=== PATIENT | female | born 1965 | race Caucasian/White ===

== ENCOUNTER 2017-12-25 22:14 | Inpatient (IN) | payer BC ==
[~2017-12-25] VITALS: Ht 182.9 cm; Wt 60.6 kg
[2017-12-25] MEDS ORDERED: NKM (22:22)
[2017-12-25 22:45] LABS: BASOPHILS % (AUTO) 1.9 % (0.0-2.0); EOSINOPHILS % (AUTO) 0.5 % (0.0-3.0); HEMATOCRIT 39.5 % (37.0-47.0); HEMOGLOBIN 13.9 G/DL (12.0-16.0); LYMPHOCYTES % (AUTO) 37.2 % (20.0-45.0); MEAN CORPUSCULAR VOLUME 95 FL (80-99); MONOCYTES % (AUTO) 11.6 % (1.0-10.0); NEUTROPHILS % (AUTO) 48.8 % (45.0-75.0); PLATELET COUNT 105 K/UL (150-450); RED BLOOD COUNT 4.14 M/UL (4.20-5.40); RED CELL DISTRIBUTION WIDTH 11.6 % (11.6-14.8); WHITE BLOOD COUNT 4.2 K/UL (4.8-10.8)
[2017-12-25 22:48] LABS: APPEARANCE,URINE CLEAR; BILIRUBIN, URINE NEGATIVE (NEGATIVE); COLOR,URINE PALE YELLOW; GLUCOSE, URINE (UA) NEGATIVE (NEGATIVE); KETONES,URINE NEGATIVE (NEGATIVE); LEUKOCYTE ESTERASE ,URINE 3+ (NEGATIVE); NITRITE,URINE NEGATIVE (NEGATIVE); PH,URINE 6 (4.5-8.0); PROTEIN,URINE 1+ (NEGATIVE); UROBILINOGEN,URINE NORMAL MG/DL (0.0-1.0)
[2017-12-25 22:58] LABS: ALBUMIN 4.2 G/DL (3.4-5.0); ANION GAP 11 mmol/L (5-15); CALCIUM 9.3 MG/DL (8.5-10.1); CARBON DIOXIDE 28 MMOL/L (21-32); CHLORIDE 100 MMOL/L (98-107); CREATININE 0.6 MG/DL (0.55-1.30); POTASSIUM 3.8 MMOL/L (3.5-5.1); SODIUM 139 MMOL/L (136-145)
[2017-12-25 23:15] LABS: ALANINE AMINOTRANSFERASE 45 U/L (12-78); ASPARTATE AMINO TRANSFERASE 35 U/L (15-37); BILIRUBIN,TOTAL 0.4 MG/DL (0.2-1.0); BLOOD UREA NITROGEN 12 mg/dL (7-18)
[2017-12-25 23:16] LABS: ALBUMIN/GLOBULIN RATIO 1.1 (1.0-2.7); ALKALINE PHOSPHATASE 76 U/L (46-116)
[2017-12-26] MEDS ORDERED: metroNIDAZOLE 500mg tab ORAL ONE (00:30)
[2017-12-26] MEDS ORDERED: cefTRIAXone 1 GM in NS 55 ML IVPB ONE (00:30)
[2017-12-26 00:44] VITALS: BP 101/57
[2017-12-26] MEDS ORDERED: LORazepam Inj 2mg/ml 1ml IV ONE (02:15)
[2017-12-26 04:15] VITALS: BP 101/57
--- NOTE | 2017-12-26 05:28 | Emergency Room Report ---
History of Present Illness General Chief Complaint: Overdose Source: Patient, EMS Present Illness HPI Patient presents by paramedics Put on a 5150 by police department There was a report patient had mentioned suicidal ideation Patient reported taking 2 of her dogs gabapentin And then drinking alcohol here The patient adamantly denies any homicidal or suicidal ideation However she does state that she does drink alcohol on a regular basis considers herself an alcoholic has been in rehabilitation programs After further observation has started to complain about feeling anxious and having palpitation Denies any chest pain denies any vomiting or diarrhea Allergies: Coded Allergies: PIPERACILLIN (Verified Allergy, Unknown, 12/25/17) Patient History Past Medical History: see triage record Pertinent Family History: none Last Menstrual Period: unk Reviewed Nursing Documentation: PMH: Agreed, PSxH: Agreed Nursing Documentation-PMH Past Medical History: No History, Except For Hx Cardiac Problems: No Hx Cancer: No Hx Gastrointestinal Problems: No Hx Neurological Problems: No Review of Systems All Other Systems: negative except mentioned in HPI Physical Exam Vital Signs Date Time Temp Pulse Resp B/P (MAP) Pulse Ox O2 Delivery O2 Flow Rate FiO2 12/25/17 22:09 97.8 97 22 127/78 100 Room Air 97.9 12/26/17 04:15 146.0 93 [id number] EP Interpretation: reviewed, normal General Appearance: mild distress - Appears anxious Head: normocephalic, atraumatic Eyes: bilateral eye PERRL, bilateral eye EOMI ENT: hearing grossly normal, normal pharynx, TMs + canals normal, uvula midline Neck: full range of motion, supple, no meningismus, no bony tend Respiratory: lungs clear, normal breath sounds, no rhonchi, no respiratory distress, no retraction, no accessory muscle use Cardiovascular #1: normal peripheral pulses, no edema, no gallop, no JVD, no murmur, tachycardia Gastrointestinal: normal bowel sounds, non tender, soft, no mass, no organomegaly, non-distended, no guarding, no hernia, no pulsatile mass, no rebound Genitourinary: no CVA tenderness Musculoskeletal: normal inspection Neurologic: oriented x3, responsive, embroidery finisher III-XII nml as tested, motor strength/ tone normal, sensory intact Psychiatric: anxious - Denies homicidal or suicidal thoughts Skin: normal color, no rash, warm/dry, palpation normal Lymphatic: normal inspection, no adenopathy Medical Decision Making Diagnostic Impression: Primary Impression: Alcohol withdrawal ER Course Patient's presentation is concerning on multiple levels Initial psychiatric component patient had blood work initiated for medical clearance However patient also showing signs and symptoms of alcohol withdrawal Requiring benzodiazepine further IV hydration At this time patient is not able to be medically cleared She will require further inpatient care Psychiatric services have been consulted and patient will have sitter at bedside until further cleared through that service And medicine for the alcohol with withdrawal pathology Labs Test 12/25/17 22:20 White Blood Count 4.2 K/UL (4.8-10.8) Red Blood Count 4.14 M/UL (4.20-5.40) Hemoglobin 13.9 G/DL (12.0-16.0) Hematocrit 39.5 % (37.0-47.0) Mean Corpuscular Volume 95 FL (80-99) Mean Corpuscular Hemoglobin 33.5 PG (27.0-31.0) Mean Corpuscular Hemoglobin Concent 35.1 G/DL (32.0-36.0) Red Cell Distribution Width 11.6 % (11.6-14.8) Platelet Count 105 K/UL (150-450) Mean Platelet Volume 7.3 FL (6.5-10.1) Neutrophils (%) (Auto) 48.8 % (45.0-75.0) Lymphocytes (%) (Auto) 37.2 % (20.0-45.0) Monocytes (%) (Auto) 11.6 % (1.0-10.0) Eosinophils (%) (Auto) 0.5 % (0.0-3.0) Basophils (%) (Auto) 1.9 % (0.0-2.0) Urine Color Pale yellow Urine Appearance Clear Urine pH 6 (4.5-8.0) Urine Specific [place] 1.010 (1.005-1.035) Urine Protein 1+ (NEGATIVE) Urine Glucose (UA) Negative (NEGATIVE) Urine Ketones Negative (NEGATIVE) Urine Occult Blood 1+ (NEGATIVE) Urine Nitrite Negative (NEGATIVE) Urine Bilirubin Negative (NEGATIVE) Urine Urobilinogen Normal MG/DL (0.0-1.0) Urine Leukocyte Esterase 3+ (NEGATIVE) Urine RBC 2-4 /HPF (0 - 2) Urine WBC 5-10 /HPF (0 - 2) Urine Squamous Epithelial Cells Few /LPF (NONE/OCC) Urine Bacteria Moderate /HPF (NONE) Urine Trichomonas Few /HPF (NONE) Sodium Level 139 MMOL/L (136-145) Potassium Level 3.8 MMOL/L (3.5-5.1) Chloride Level 100 MMOL/L (98-107) Carbon Dioxide Level 28 MMOL/L (21-32) Anion Gap 11 mmol/L (5-15) Blood Urea Nitrogen 12 mg/dL (7-18) Creatinine 0.6 MG/DL (0.55-1.30) Estimat Glomerular Filtration Rate > 60 mL/min (>60) Glucose Level 118 MG/DL (74-106) Calcium Level 9.3 MG/DL (8.5-10.1) Total Bilirubin 0.4 MG/DL (0.2-1.0) Aspartate Amino Transf (AST/SGOT) 35 U/L (15-37) Alanine Aminotransferase (ALT/SGPT) 45 U/L (12-78) Alkaline Phosphatase 76 U/L (46-116) Total Protein 8.0 G/DL (6.4-8.2) Albumin 4.2 G/DL (3.4-5.0) Globulin 3.8 g/dL Albumin/Globulin Ratio 1.1 (1.0-2.7) Salicylates Level 2.8 ug/mL (2.8-20) Urine Opiates Screen Negative (NEGATIVE) Acetaminophen Level < 2 MCG/ML (10-30) Urine Barbiturates Screen Negative (NEGATIVE) Phencyclidine (PCP) Screen Negative (NEGATIVE) Urine Amphetamines Screen Negative (NEGATIVE) Urine Benzodiazepines Screen Positive (NEGATIVE) Urine Cocaine Screen Negative (NEGATIVE) Urine Marijuana (THC) Screen Negative (NEGATIVE) Serum Alcohol 435 mg/dL Rhythm Strip Diag. Results EP Interpretation: yes Rate: 99 Rhythm: NSR, no PVC's, no ectopy Last Vital Signs Date Time Temp Pulse Resp B/P (MAP) Pulse Ox O2 Delivery O2 Flow Rate FiO2 12/26/17 04:19 97.8 106 21 101/57 100 Room Air 97.9 12/26/17 04:15 146.0 93 Status: improved Disposition: ADMITTED INPATIENT Condition: Serious Referrals: NOT CHOSEN IPA/,REFERRING (PCP) GAMA RAYMOND D.O. Dec 26, 2017 05:28
[2017-12-26] MEDS ORDERED: Morphine Sulfate 2mg/ml Inj IVP PRN ×2 (07:15→22:14)
[2017-12-26] MEDS ORDERED: Mylanta II UD 30ml ORAL PRN ×2 (07:15→22:13)
[2017-12-26] MEDS ORDERED: Miralax 17gm pkt ORAL PRN ×2 (07:15→22:14)
[2017-12-26] MEDS ORDERED: chlordiazePOXIDE 25mg Cap ORAL PRN (07:15)
[2017-12-26] MEDS ORDERED: LORazepam Inj 2mg/ml 1ml IV PRN (07:15)
--- NOTE | 2017-12-26 07:36 | Consultation ---
History of Present Illness General Date patient seen: Dec 26, 2017 Chief Complaint: Overdose Present Illness HPI 52 year old female presented by paramedics with a report that patient had mentioned suicidal ideation Patient reported taking 2 gabapentin And then drinking alcohol around 5 liters. she does drink alcohol on a regular basis considers herself an alcoholic has been in rehabilitation programs Pt is admitted to [facility] for ETOH intoxication. Allergies: Coded Allergies: PIPERACILLIN (Verified Allergy, Unknown, 12/25/17) Medication History Scheduled No Known Medications* (NKM - No Known Medications*), 0 ., (Reported) Patient History Healthcare decision maker Resuscitation status Full Code Advanced Directive on File Past Medical/Surgical History Past Medical/Surgical History: (1) ETOH abuse Review of Systems All Other Systems: negative except mentioned in HPI Physical Exam Lines, tubes and drains: peripheral HEENT: normocephalic, atraumatic Neck: non-tender Respiratory/Chest: chest wall non-tender, lungs clear Cardiovascular/Chest: normal peripheral pulses, normal rate Abdomen: normal bowel sounds, non tender Genitourinary/Rectal: normal genital exam, normal rectal exam Extremities: normal range of motion, non-tender Last 24 Hour Vital Signs Date Time Temp Pulse Resp B/P (MAP) Pulse Ox O2 Delivery O2 Flow Rate FiO2 12/26/17 04:19 97.8 106 21 101/57 100 Room Air 97.9 12/26/17 04:15 98.2 78 18 101/57 99 Room Air 146.0 93 98.2 12/26/17 04:00 88 12/26/17 00:44 106 21 101/57 100 Room Air 12/25/17 22:35 97 22 Room Air 12/25/17 22:09 97.8 97 22 127/78 100 Room Air 97.9 Intake and Output 12/25/17 12/26/17 19:00 07:00 Intake Total 1055 ml Output Total 0 ml Balance 1055 ml Intake Oral 0 ml IV Total 1055 ml Output Urine Total 0 ml Laboratory Tests Test 12/25/17 22:20 White Blood Count 4.2 K/UL (4.8-10.8) L Red Blood Count 4.14 M/UL (4.20-5.40) L Hemoglobin 13.9 G/DL (12.0-16.0) Hematocrit 39.5 % (37.0-47.0) Mean Corpuscular Volume 95 FL (80-99) Mean Corpuscular Hemoglobin 33.5 PG (27.0-31.0) H Mean Corpuscular Hemoglobin Concent 35.1 G/DL (32.0-36.0) Red Cell Distribution Width 11.6 % (11.6-14.8) Platelet Count 105 K/UL (150-450) L Mean Platelet Volume 7.3 FL (6.5-10.1) Neutrophils (%) (Auto) 48.8 % (45.0-75.0) Lymphocytes (%) (Auto) 37.2 % (20.0-45.0) Monocytes (%) (Auto) 11.6 % (1.0-10.0) H Eosinophils (%) (Auto) 0.5 % (0.0-3.0) Basophils (%) (Auto) 1.9 % (0.0-2.0) Urine Color Pale yellow Urine Appearance Clear Urine pH 6 (4.5-8.0) Urine Specific [place] 1.010 (1.005-1.035) Urine Protein 1+ (NEGATIVE) H Urine Glucose (UA) Negative (NEGATIVE) Urine Ketones Negative (NEGATIVE) Urine Occult Blood 1+ (NEGATIVE) H Urine Nitrite Negative (NEGATIVE) Urine Bilirubin Negative (NEGATIVE) Urine Urobilinogen Normal MG/DL (0.0-1.0) Urine Leukocyte Esterase 3+ (NEGATIVE) H Urine RBC 2-4 /HPF (0 - 2) H Urine WBC 5-10 /HPF (0 - 2) H Urine Squamous Epithelial Cells Few /LPF (NONE/OCC) Urine Bacteria Moderate /HPF (NONE) H Urine Trichomonas Few /HPF (NONE) H Sodium Level 139 MMOL/L (136-145) Potassium Level 3.8 MMOL/L (3.5-5.1) Chloride Level 100 MMOL/L (98-107) Carbon Dioxide Level 28 MMOL/L (21-32) Anion Gap 11 mmol/L (5-15) Blood Urea Nitrogen 12 mg/dL (7-18) Creatinine 0.6 MG/DL (0.55-1.30) Estimat Glomerular Filtration Rate > 60 mL/min (>60) Glucose Level 118 MG/DL (74-106) H Calcium Level 9.3 MG/DL (8.5-10.1) Total Bilirubin 0.4 MG/DL (0.2-1.0) Aspartate Amino Transf (AST/SGOT) 35 U/L (15-37) Alanine Aminotransferase (ALT/SGPT) 45 U/L (12-78) Alkaline Phosphatase 76 U/L (46-116) Total Protein 8.0 G/DL (6.4-8.2) Albumin 4.2 G/DL (3.4-5.0) Globulin 3.8 g/dL Albumin/Globulin Ratio 1.1 (1.0-2.7) Salicylates Level 2.8 ug/mL (2.8-20) Urine Opiates Screen Negative (NEGATIVE) Acetaminophen Level < 2 MCG/ML (10-30) L Urine Barbiturates Screen Negative (NEGATIVE) Phencyclidine (PCP) Screen Negative (NEGATIVE) Urine Amphetamines Screen Negative (NEGATIVE) Urine Benzodiazepines Screen Positive (NEGATIVE) H Urine Cocaine Screen Negative (NEGATIVE) Urine Marijuana (THC) Screen Negative (NEGATIVE) Serum Alcohol 435 mg/dL Height (Feet): 6 Height (Inches): 0.00 Weight (Pounds): 133 Medications Current Medications Medications (Trade) Dose Ordered Sig/Agustin Route PRN Reason Start Time Stop Time Status Last Admin Dose Admin Acetaminophen (Tylenol) 650 mg Q4H PRN ORAL T>100.5 12/26/17 07:15 01/25/18 07:14 Al Hydroxide/Mg Hydroxide (Mylanta II) 30 ml Q6H PRN ORAL dyspepsia 12/26/17 07:15 01/25/18 07:14 Chlordiazepoxide (Librium) 25 mg Q6H PRN ORAL Agitation 12/26/17 07:15 01/02/18 07:14 Dextrose (Dextrose 50%) STAT PRN IV Hypoglycemia 12/26/17 07:15 01/25/18 07:14 Folic Acid 1 mg/ Magnesium Sulfate 2000 mg/ Multivitamins 10 ml/Sodium Chloride 1,014.2 ml @ 125 mls/ hr Q24H IV 12/26/17 08:30 01/25/18 08:29 Heparin Sodium (Porcine) (Heparin 5000 units/ml) 5,000 units EVERY 12 HOURS SUBQ 12/26/17 09:00 01/25/18 08:59 Lorazepam (Ativan 2mg/ml 1ml) 2 mg EVERY HOUR PRN IV seizures 12/26/17 07:15 01/02/18 07:14 Morphine Sulfate (Morphine Sulfate) 1 mg Q4H PRN IVP Severe Pain (Pain Scale 7-10) 12/26/17 07:15 01/02/18 07:14 Ondansetron HCl (Zofran) 4 mg Q6H PRN IVP Nausea & Vomiting 12/26/17 07:15 01/25/18 07:14 Polyethylene Glycol (Miralax) 17 gm HSPRN PRN ORAL Constipation 12/26/17 07:15 01/25/18 07:14 Thiamine HCl 100 mg/Sodium Chloride 56 ml @ 112 mls/hr Q24H IVPB 12/26/17 08:30 01/25/18 08:29 Zolpidem Tartrate (Ambien) 5 mg HSPRN PRN ORAL Insomnia 12/26/17 21:00 01/02/18 20:59 Assessment/Plan Problem List: (1) Acute encephalopathy ICD Codes: G93.40 - Encephalopathy, unspecified SNOMED: 64301672, 492762451 (2) Drug overdose ICD Codes: T50.901A - Poisoning by unspecified drugs, medicaments and biological substances, accidental (unintentional), initial encounter SNOMED: 96368690 (3) ETOH abuse ICD Codes: F10.10 - Alcohol abuse, uncomplicated SNOMED: 43820089 Assessment/Plan iv fluids banana bag Librium po Ativan IV prn check electrolytes psych evaluation MO CINTRON Dec 26, 2017 07:35
[2017-12-26 08:00] VITALS: BP 118/69
[2017-12-26] MEDS: Heparin 5000 units/ml inj SUBQ SCH ×2 (08:28→20:11)
[2017-12-26] MEDS ORDERED: Folic Acid 1 MG, Magnesium Sulfate 2,000 MG, Multivitamin - 12 Injection 10 ML in NS w/... IV SCH ×2 (08:30→22:13)
[2017-12-26] MEDS ORDERED: Thiamine HCl 100 MG in NS 55 ML IVPB SCH (08:30)
[2017-12-26 12:00] VITALS: BP 129/83
--- NOTE | 2017-12-26 12:47 | History & Physical ---
History and Physical History & Physicial [id number] job ID Mingo [email or web address] Dec 26, 2017 12:47
[2017-12-26 16:00] VITALS: BP 126/77
[2017-12-26 19:48] VITALS: BP 141/96
[2017-12-26] MEDS ORDERED: Zolpidem 5mg tab ORAL PRN ×2 (21:00→22:15)
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
[2017-12-27 00:07] VITALS: BP 129/66
--- NOTE | 2017-12-27 01:45 | History and Physical Report ---
DATE OF ADMISSION: 12/26/2017 NOTE: POOR AUDIO I am covering for Dr. Rae. HISTORY OF PRESENT ILLNESS: The patient is a pleasant 52-year-old female with past medical history significant for depression, alcohol abuse, and intoxication, at this time presents to the hospital brought in from home. The patient noted to have the glucose of 118, WBC of 4.2 was started on IV fluids as well as antibiotics. Psychiatric Service has been consulted. The patient presents to the hospital brought in by paramedics for suicidal ideation, alcohol withdrawal, drinking alcohol approximately 5 a day regularly. I am covering for Dr. Rae, for further evaluation and treatment. PAST MEDICAL HISTORY: As noted above, alcohol abuse. PAST SURGICAL HISTORY: None noted. ALLERGIES: Zosyn. REVIEW OF SYSTEMS: CONSTITUTIONAL: No fevers, chills, or night sweats. SKIN: No rashes, bumps, or itching. HEENT: No headache, hearing or vision changes. BREASTS: No lumps, pain, or discharge. PULMONARY: No cough, sputum, or shortness of breath. GASTROINTESTINAL: No nausea, vomiting, or diarrhea. GENITOURINARY: No dysuria, frequency, or urgency. MUSCULOSKELETAL: No joint swelling, muscle pain, or trauma. PHYSICAL EXAMINATION: VITAL SIGNS: Reviewed. GENERAL: No distress. PULMONARY: Decreased breath sounds. CARDIOVASCULAR: Regular rate. No S3 or S4. ABDOMEN: Soft, nontender, and nondistended. EXTREMITIES: No cyanosis, swelling, or edema. LABORATORY DATA: WBC 4.3, hemoglobin 13.9, hematocrit 40, and platelet count 106,000. IMAGING: Reviewed. ASSESSMENT AND RECOMMENDATIONS: 1. Alcohol withdrawal. Alcohol protocol has been started. Continue to closely monitor. Ativan on p.r.n. basis. Started on fluids as well. 2. Drug overdose. Obtain urine toxicology. Closely monitor for improvement. 3. Acute encephalopathy, probably secondary to alcohol abuse. Psychiatry Service has been consulted. Electrolytes will be checked and had IV fluids started as well. 4. Depression. Continue as needed. 5. Deep venous thrombosis prophylaxis with heparin. 6. I appreciate retail sales consultant care. Mingo Medeiros M.D. DR: QUE JOB#: [id number] CC:
[2017-12-27 07:11] LABS: HEMATOCRIT 35.8 % (37.0-47.0); HEMOGLOBIN 12.5 G/DL (12.0-16.0); MEAN CORPUSCULAR VOLUME 98 FL (80-99); PLATELET COUNT 63 K/UL (150-450); RED BLOOD COUNT 3.65 M/UL (4.20-5.40); WHITE BLOOD COUNT 3.2 K/UL (4.8-10.8)
[2017-12-27 07:57] LABS: ALANINE AMINOTRANSFERASE 43 U/L (12-78); ALBUMIN 3.6 G/DL (3.4-5.0); ALBUMIN/GLOBULIN RATIO 1.1 (1.0-2.7); ALKALINE PHOSPHATASE 68 U/L (46-116); ANION GAP 6 mmol/L (5-15); ASPARTATE AMINO TRANSFERASE 38 U/L (15-37); BILIRUBIN,TOTAL 1.2 MG/DL (0.2-1.0); BLOOD UREA NITROGEN 9 mg/dL (7-18); CALCIUM 9.1 MG/DL (8.5-10.1); CARBON DIOXIDE 29 MMOL/L (21-32); CHLORIDE 102 MMOL/L (98-107); CREATININE 0.5 MG/DL (0.55-1.30); POTASSIUM 3.6 MMOL/L (3.5-5.1); SODIUM 137 MMOL/L (136-145)
[2017-12-27 07:58] LABS: BILIRUBIN,DIRECT 0.2 MG/DL (0.0-0.3)
[2017-12-27 08:00] VITALS: BP 109/79
[2017-12-27] MEDS ORDERED: Thiamine HCl 100 MG in NS 55 ML IVPB SCH (08:30)
[2017-12-27] MEDS ORDERED: Folic Acid 1 MG, Magnesium Sulfate 2,000 MG, Multivitamin - 12 Injection 10 ML in NS w/... IV SCH (08:30)
[2017-12-27] MEDS ORDERED: Heparin 5000 units/ml inj SUBQ SCH (09:00)
[2017-12-27 12:00] VITALS: BP 132/90
--- NOTE | 2017-12-27 12:53 | General Progress Note ---
Assessment/Plan Status: stable Assessment/Plan Alcohol withdrawal alcohol dependence valium last dose before she leaves no script as the pt will be discharged with to [facility] the pt and were educated the pt is not at imminent dts/dto Subjective Date patient seen: Dec 27, 2017 Neurologic/Psychiatric: Reports: anxiety, depressed, emotional problems Allergies: Coded Allergies: PIPERACILLIN (Verified Allergy, Unknown, 12/25/17) Subjective the pt is more stable 2 doses of valium today slept well at bedside Objective Last 24 Hour Vital Signs Date Time Temp Pulse Resp B/P (MAP) Pulse Ox O2 Delivery O2 Flow Rate FiO2 12/27/17 08:00 96.6 88 18 109/79 98 96.6 12/27/17 00:07 97.7 73 18 129/66 99 Room Air 97.7 12/26/17 19:48 98.1 90 20 141/96 100 98.1 12/26/17 16:00 97.0 82 16 126/77 97 Room Air 97.0 12/26/17 16:00 101 Intake and Output 12/26/17 12/27/17 19:00 07:00 Intake Total 2562.667 ml Balance 2562.667 ml Intake Oral 1440 ml IV Total 1122.667 ml # Voids 10 3 # Bowel Movements 2 Laboratory Tests 12/27/17 05:40: White Blood Count 3.2L, Red Blood Count 3.65L, Hemoglobin 12.5, Hematocrit 35.8L , Mean Corpuscular Volume 98, Mean Corpuscular Hemoglobin 34.1H, Mean Corpuscular Hemoglobin Concent 34.8, Red Cell Distribution Width 12.0, Platelet Count 63L, Mean Platelet Volume 7.6, Neutrophils (%) (Auto) , Lymphocytes (%) ( Auto) , Monocytes (%) (Auto) , Eosinophils (%) (Auto) , Basophils (%) (Auto) , Differential Total Cells Counted 100, Neutrophils % (Manual) 67, Lymphocytes % ( Manual) 21, Monocytes % (Manual) 7, Eosinophils % (Manual) 4H, Basophils % ( Manual) 1, Band Neutrophils 0, Platelet Estimate DecreasedL, Platelet Morphology Normal, Red Blood Cell Morphology Normal, Sodium Level 137, Potassium Level 3.6, Chloride Level 102, Carbon Dioxide Level 29, Anion Gap 6, Blood Urea Nitrogen 9, Creatinine 0.5L, Estimat Glomerular Filtration Rate > 60 , Glucose Level 85, Calcium Level 9.1, Total Bilirubin 1.2H, Direct Bilirubin 0.2, Aspartate Amino Transf (AST/SGOT) 38H, Alanine Aminotransferase (ALT/SGPT) 43, Alkaline Phosphatase 68, Total Protein 7.0, Albumin 3.6, Globulin 3.4, Albumin/Globulin Ratio 1.1 Height (Feet): 6 Height (Inches): 0.00 Weight (Pounds): 133 General Appearance: WD/WN, no apparent distress, alert Neurologic: alert, oriented x 3, responsive, depressed affect Calin Oreilly M.D. Dec 27, 2017 12:52
--- NOTE | 2017-12-27 17:17 | Discharge Summary ---
Discharge Summary Hospital Course Date of Admission Dec 26, 2017 at 03:01 Date of Discharge Dec 27, 2017 at 14:30 Admitting Diagnosis alcohol withdrwal HPI Cassie Solomon is a 52 year old female who was admitted on Dec 26, 2017 at 03 :01 for Alcohol Withdrawal Hospital Course [id number] Discharge Discharge Disposition Patient was discharged to Home (01) Discharge Diagnoses: Sulema Lazo NP Dec 27, 2017 17:17
--- NOTE | 2017-12-28 09:15 | Discharge Summary 2 SIG ---
DATE OF ADMISSION: 12/26/2017 DATE OF DISCHARGE: 12/27/2017 CABLE ASSEMBLER: Calin Oreilly M.D. BRIEF HOSPITAL COURSE: The patient is a 52-year-old female, who has medical history significant for depression, alcohol abuse, and intoxication, presented to the hospital from home. She was noted to have glucose of 118 and WBC of 4.2. She was started on IV fluid as well as IV antibiotics. Urine toxicology was negative except for benzodiazepine. Serum alcohol level was 435. Salicylate was 2.8. Psychiatric Services have been consulted. The patient was given a sitter. She was seen by Dr. Oreilly. The patient was on 5150 due to suicidal ideation and reported taking two gabapentin and drinking alcohol. She lost her child at age 17 in a motor vehicle accident 15 years ago. The patient had been to rehabilitation before and was motivated to stop. The patient was denying any suicidal intent. She was given Valium and Prozac and was assessed to be not danger to self and not at imminent danger to others. The patient was discharged to to follow up with rehabilitation. The patient and were educated. The patient was discharged home. FINAL DIAGNOSES: 1. Alcohol withdrawal. 2. Alcohol dependence. 3. Drug overdose. 4. Acute encephalopathy secondary to alcohol abuse. 5. Depression. ADDENDUM: . DISPOSITION: The patient was discharged home. DISCHARGE INSTRUCTIONS: Follow up with drug rehab. Mingo Medeiros M.D. I have been assigned to dictate discharge summary on this account and I was not involved in the patient's management. Sulema Lazo N.P. DR: Chago JOB#: [id number] CC: CECILIO
--- NOTE | 2017-12-28 09:19 | General Progress Note ---
Assessment/Plan Assessment/Plan 1. Alcohol withdrawal. --> Alcohol protocol has been started. Continue to closely monitor. --> Ativan on p.r.n. basis. Started on fluids as well. --> Patient has agreed to go to [facility] rehab. 2. Drug overdose. --> Closely monitor for improvement. 3. Acute encephalopathy, probably secondary to alcohol abuse. Psychiatry Service has been consulted. --> Electrolytes will be checked and had IV fluids started as well. 4. Depression. 5. Deep venous thrombosis prophylaxis with heparin. 6. Leukopenia. Subjective Date patient seen: Dec 27, 2017 Constitutional: Denies: no symptoms, chills, diaphoresis, fever, malaise, weakness, other HEENT: Denies: no symptoms, eye pain, blurred vision, tearing, double vision, ear pain, ear discharge, nose pain, nose congestion, throat pain, throat swelling, mouth pain, mouth swelling, other Cardiovascular: Denies: no symptoms, chest pain, edema, irregular heart rate, lightheadedness, palpitations, syncope, other Respiratory: Denies: no symptoms, cough, orthopnea, shortness of breath, SOB with excertion, SOB at rest, sputum, stridor, wheezing, other Gastrointestinal/Abdominal: Denies: no symptoms, abdomen distended, abdominal pain, black stools, tarry stools, blood in stool, constipated, diarrhea, difficulty swallowing, nausea, poor appetite, poor fluid intake, rectal bleeding , vomiting, other Genitourinary: Denies: no symptoms, burning, discharge, frequency, flank pain, hematuria, incontinence, pain, urgency, other Neurologic/Psychiatric: Denies: no symptoms, anxiety, depressed, emotional problems, headache, numbness, paresthesia, pre-existing deficit, seizure, tingling, tremors, weakness, other Allergies: Coded Allergies: PIPERACILLIN (Verified Allergy, Unknown, 12/25/17) Subjective Leukopenia. NAD. Objective Last 24 Hour Vital Signs Date Time Temp Pulse Resp B/P (MAP) Pulse Ox O2 Delivery O2 Flow Rate FiO2 12/27/17 12:00 98.8 83 18 132/90 98 98.8 Labs Test 12/25/17 22:20 12/27/17 05:40 White Blood Count 4.2 K/UL (4.8-10.8) 3.2 K/UL (4.8-10.8) Red Blood Count 4.14 M/UL (4.20-5.40) 3.65 M/UL (4.20-5.40) Hemoglobin 13.9 G/DL (12.0-16.0) 12.5 G/DL (12.0-16.0) Hematocrit 39.5 % (37.0-47.0) 35.8 % (37.0-47.0) Mean Corpuscular Volume 95 FL (80-99) 98 FL (80-99) Mean Corpuscular Hemoglobin 33.5 PG (27.0-31.0) 34.1 PG (27.0-31.0) Mean Corpuscular Hemoglobin Concent 35.1 G/DL (32.0-36.0) 34.8 G/DL (32.0-36.0) Red Cell Distribution Width 11.6 % (11.6-14.8) 12.0 % (11.6-14.8) Platelet Count 105 K/UL (150-450) 63 K/UL (150-450) Mean Platelet Volume 7.3 FL (6.5-10.1) 7.6 FL (6.5-10.1) Neutrophils (%) (Auto) 48.8 % (45.0-75.0) % (45.0-75.0) Lymphocytes (%) (Auto) 37.2 % (20.0-45.0) % (20.0-45.0) Monocytes (%) (Auto) 11.6 % (1.0-10.0) % (1.0-10.0) Eosinophils (%) (Auto) 0.5 % (0.0-3.0) % (0.0-3.0) Basophils (%) (Auto) 1.9 % (0.0-2.0) % (0.0-2.0) Urine Color Pale yellow Urine Appearance Clear Urine pH 6 (4.5-8.0) Urine Specific Delano 1.010 (1.005-1.035) Urine Protein 1+ (NEGATIVE) Urine Glucose (UA) Negative (NEGATIVE) Urine Ketones Negative (NEGATIVE) Urine Occult Blood 1+ (NEGATIVE) Urine Nitrite Negative (NEGATIVE) Urine Bilirubin Negative (NEGATIVE) Urine Urobilinogen Normal MG/DL (0.0-1.0) Urine Leukocyte Esterase 3+ (NEGATIVE) Urine RBC 2-4 /HPF (0 - 2) Urine WBC 5-10 /HPF (0 - 2) Urine Squamous Epithelial Cells Few /LPF (NONE/OCC) Urine Bacteria Moderate /HPF (NONE) Urine Trichomonas Few /HPF (NONE) Sodium Level 139 MMOL/L (136-145) 137 MMOL/L (136-145) Potassium Level 3.8 MMOL/L (3.5-5.1) 3.6 MMOL/L (3.5-5.1) Chloride Level 100 MMOL/L (98-107) 102 MMOL/L (98-107) Carbon Dioxide Level 28 MMOL/L (21-32) 29 MMOL/L (21-32) Anion Gap 11 mmol/L (5-15) 6 mmol/L (5-15) Blood Urea Nitrogen 12 mg/dL (7-18) 9 mg/dL (7-18) Creatinine 0.6 MG/DL (0.55-1.30) 0.5 MG/DL (0.55-1.30) Estimat Glomerular Filtration Rate > 60 mL/min (>60) > 60 mL/min (>60) Glucose Level 118 MG/DL (74-106) 85 MG/DL (74-106) Calcium Level 9.3 MG/DL (8.5-10.1) 9.1 MG/DL (8.5-10.1) Total Bilirubin 0.4 MG/DL (0.2-1.0) 1.2 MG/DL (0.2-1.0) Aspartate Amino Transf (AST/SGOT) 35 U/L (15-37) 38 U/L (15-37) Alanine Aminotransferase (ALT/SGPT) 45 U/L (12-78) 43 U/L (12-78) Alkaline Phosphatase 76 U/L (46-116) 68 U/L (46-116) Total Protein 8.0 G/DL (6.4-8.2) 7.0 G/DL (6.4-8.2) Albumin 4.2 G/DL (3.4-5.0) 3.6 G/DL (3.4-5.0) Globulin 3.8 g/dL 3.4 g/dL Albumin/Globulin Ratio 1.1 (1.0-2.7) 1.1 (1.0-2.7) Salicylates Level 2.8 ug/mL (2.8-20) Urine Opiates Screen Negative (NEGATIVE) Acetaminophen Level < 2 MCG/ML (10-30) Urine Barbiturates Screen Negative (NEGATIVE) Phencyclidine (PCP) Screen Negative (NEGATIVE) Urine Amphetamines Screen Negative (NEGATIVE) Urine Benzodiazepines Screen Positive (NEGATIVE) Urine Cocaine Screen Negative (NEGATIVE) Urine Marijuana (THC) Screen Negative (NEGATIVE) Serum Alcohol 435 mg/dL Differential Total Cells Counted 100 Neutrophils % (Manual) 67 % (45-75) Lymphocytes % (Manual) 21 % (20-45) Monocytes % (Manual) 7 % (1-10) Eosinophils % (Manual) 4 % (0-3) Basophils % (Manual) 1 % (0-2) Band Neutrophils 0 % (0-8) Platelet Estimate Decreased Platelet Morphology Normal Red Blood Cell Morphology Normal Direct Bilirubin 0.2 MG/DL (0.0-0.3) Height (Feet): 6 Height (Inches): 0.00 Weight (Pounds): 133 Mingo Medeiros Dec 28, 2017 09:19
== END 2017-12-27 14:30 | disposition home or self-care (01) | DRG 917 ==
LOC: EDBD 22:14 → EMR 23:16 → 2W 12-26 03:01 → EDBEDREQ 12-26 03:17 → 2W 12-26 03:30 → 4W 12-26 22:10
DX: T42.6X2A Poisoning by other antiepileptic and sedative-hypnotic drugs, intentional self-harm, initial encounter (principal); G92 Toxic encephalopathy; F10.239 Alcohol dependence with withdrawal, unspecified; F32.9 Major depressive disorder, single episode, unspecified; T51.0X2A Toxic effect of ethanol, intentional self-harm, initial encounter; Y92.019 Unspecified place in single-family (private) house as the place of occurrence of the external cause
CPT/HCPCS: 36415; 80053; 80307; 80329; 81003; 82248; 85007; 85025; 87086; 87181; 99285